=== PATIENT | female | born 1985 | race Caucasian/White ===

== ENCOUNTER 2020-08-19 10:11 | Outpatient (REF) | payer OTHER, SELFPAY ==
[2020-08-19 10:30] LABS: COVID-19 Test Positive (Negative)
== END 2020-08-19 10:12 | disposition home or self-care (01) ==
LOC: HO.LAB 10:11
PROVIDERS: Visit Provider Internal Medicine
DX: Z20.822 Contact with and (suspected) exposure to COVID-19 (principal)
CPT/HCPCS: 36415; 87635; C9803

== ENCOUNTER 2020-09-01 10:35 | Outpatient (REF) | payer OTHER, SELFPAY ==
[2020-09-01 11:12] LABS: COVID-19 Test Negative (Negative)
== END 2020-09-01 10:36 | disposition home or self-care (01) ==
LOC: HO.LAB 10:35
PROVIDERS: Visit Provider Internal Medicine
DX: Z20.822 Contact with and (suspected) exposure to COVID-19 (principal)
CPT/HCPCS: 36415; 87635; C9803